=== PATIENT | male | born 1990 | race Caucasian/White ===

== ENCOUNTER 2017-10-17 17:48 | Emergency (ER) | payer OTHER ==
[~2017-10-17] VITALS: Ht 177.8 cm; Wt 111.1 kg
[2017-10-17 18:11] VITALS: Ht 177.8 cm; Wt 111.1 kg
[2017-10-17 21:31] VITALS: BP 118/67
== END 2017-10-17 21:31 | disposition home or self-care (01) ==
LOC: ED 17:48
DX: M54.41 Lumbago with sciatica, right side (principal)
CPT/HCPCS: J1885